=== PATIENT | female | born 1960 | race Caucasian/White ===

== ENCOUNTER 2018-10-24 08:23 | Outpatient (CLI) | payer BC | END 2018-10-24 08:24 | disposition home or self-care (01) | LOC: BICMAMMO 08:23 | PROVIDERS: ATTEND Obstetrics & Gynecology Gynecology | DX: Z12.31 Encounter for screening mammogram for malignant neoplasm of breast (principal); N63.10 Unspecified lump in the right breast, unspecified quadrant; N63.20 Unspecified lump in the left breast, unspecified quadrant; Z98.82 Breast implant status; Z85.038 Personal history of other malignant neoplasm of large intestine; Z80.3 Family history of malignant neoplasm of breast | CPT/HCPCS: 77063; 77067 ==

== ENCOUNTER 2019-06-08 08:24 | Outpatient (CLI) | payer OTHER ==
[2019-06-08] MEDS ORDERED: Gadobenate Dimeglumine 529 MG/1 ML (20ML VIAL) ONE (09:00)
--- NOTE | 2019-06-08 10:10 | MRI ---
MRI BRAIN WITH AND WITHOUT CONTRAST: DATE: 06/08/2019 HISTORY: 58-year-old female with vertigo TECHNIQUE: Multiplanar, multisequence MRI of the brain obtained pre and post IV injection of gadolinium based co ntrast agent. FINDINGS: The ventricles are normal in size and configuration. There is no midline shift or any other evidence of mass effect. There is no extra-axial fluid collection. There are a few tiny T2 hyperintense foci of the millimeters in size in the right frontal deep cerebral white matter. In the left parietal alex icomedullary junction or subcortical white matter, there is a very small 0.6 x 0.6 cm lesion which is centrally heterogeneously T2 hyperintense, with hemosiderin rim, and magnetic susceptibility artif act, and no surrounding vasogenic edema. There is little or no associated enhancement. There is no other major intra-axial signal abnormality, abnormal enhancement, mass, recent hemorrhage, or restric angélica diffusion. IMPRESSION: 1. Evidence for very small cavernous angioma in the left parietal lobe. 2. A few tiny right frontal cerebral white matter lesions, nonspecific. Most likely represent minimal chronic ischemic white matter changes due to microvascular atherosclerosis or migraine lesions. 3. Otherwise negative.
== END 2019-06-08 08:25 | disposition home or self-care (01) ==
LOC: SCSMRI 08:24
PROVIDERS: ATTEND Family Medicine
DX: R42 Dizziness and giddiness (principal); D18.02 Hemangioma of intracranial structures; G93.9 Disorder of brain, unspecified
CPT/HCPCS: 70553; 82565; A9577

== ENCOUNTER 2019-10-12 07:58 | Outpatient (CLI) | payer OTHER ==
--- NOTE | 2019-10-12 09:41 | ULT ---
EXAM: US Abdominal CLINICAL HISTORY: Positive bowel pain. Bloating. COMPARISON: None. FINDINGS: Pancreas: The head of the pancreas is a normal echotexture. The remainder the pancreas is obscured b y bowel gas IVC: Obscured and cannot be assessed Aorta: Visualized aorta has a normal caliber. Liver:Normal hepatic parenchymal echotexture. No hepatic masses or intrahepatic biliary dilatation. C ontour of the hepatic margins maintained. Right hepatic lobe measures 15.9 cm. Gallbladder: No sonographic evidence of cholelithiasis, gallbladder wall thickening or pericholecysti c fluid. Bravo's sign:Negative CBD: 0.69 cm common bile duct diameter Portal vein: Patent. Appropriate directional flow. Right kidney: Normal cortical echotexture. No hydronephrosis. Right kidney measuring 10.4 x 3.5 x 3. 8 cm in length. Left kidney: Left renal cortical thinning. No hydronephrosis.. Left kidney measuring 10.3 x 4.7 x 4.3 cm in length Spleen: Normal echotexture. Spleen measures 8.5 cm IMPRESSION: 1. Upper normal common bile duct diameter. MRCP or ERCP if clinically warranted. 2. Otherwise, unremarkable abdominal ultrasound.
== END 2019-10-12 07:59 | disposition home or self-care (01) ==
LOC: SCSULT 07:58
PROVIDERS: ATTEND Internal Medicine Gastroenterology
DX: C18.9 Malignant neoplasm of colon, unspecified (principal); R14.0 Abdominal distension (gaseous); R10.11 Right upper quadrant pain; R10.31 Right lower quadrant pain; K59.00 Constipation, unspecified; K57.90 Diverticulosis of intestine, part unspecified, without perforation or abscess without bleeding; R10.13 Epigastric pain; Z80.0 Family history of malignant neoplasm of digestive organs; Z85.038 Personal history of other malignant neoplasm of large intestine; R63.5 Abnormal weight gain
CPT/HCPCS: 93975

== ENCOUNTER 2020-07-30 10:10 | Outpatient (CLI) | payer BC ==
--- NOTE | 2020-07-30 10:59 | MMO ---
Bilateral MAMMO Bilat Screen [facility]. CLINICAL HISTORY: Patient is 60 years old and is seen for screening. The patient has a history of bilateral OTHER in Jan, 2019 - SALINE REMOVED FROM IMPLANTS and right Cyst Aspiration in November, - benign. VIEWS: The views performed were: bilateral craniocaudal with tomosynthesis and bilateral mediolateral oblique with tomosynthesis. FILMS COMPARED: The present examination has been compared to prior imaging studies performed at [facility] on 09/04/2012, 05/17/2017, 05/23/2017 and 10/24/2018. This study has been interpreted with the assistance of computer-aided detection. MAMMOGRAM FINDINGS: The breasts are heterogeneously dense, which could obscure a lesion on mammography. Benign calcifications are noted bilaterally. Bilateral implants are now collapsed. There are no suspicious masses, suspicious calcifications, or new areas of architectural distortion. IMPRESSION: THERE IS NO MAMMOGRAPHIC EVIDENCE OF MALIGNANCY. A ROUTINE FOLLOW-UP MAMMOGRAM IN 1 YEAR IS RECOMMENDED. THE RESULTS OF THIS EXAM WERE SENT TO THE PATIENT. ACR BI-RADS Category 2 - Benign finding MAMMOGRAPHY NOTE: 1. A negative mammogram report should not delay a biopsy if a dominant of clinically suspicious mass is present. 2. Approximately 10% to 15% of breast cancers are not detected by mammography. 3. Adenosis and dense breasts may obscure an underlying neoplasm. Reported by: HOLLAND CASTILLO MD Electonically Signed: [id number]
== END 2020-07-30 10:11 | disposition home or self-care (01) ==
LOC: BICMAMMO 10:10
PROVIDERS: ATTEND Obstetrics & Gynecology Gynecology
DX: Z12.31 Encounter for screening mammogram for malignant neoplasm of breast (principal); Z98.82 Breast implant status; Z91.89 Other specified personal risk factors, not elsewhere classified
CPT/HCPCS: 77063; 77067

== ENCOUNTER 2022-08-13 10:51 | Outpatient (CLI) | payer BC | END 2022-08-13 10:52 | disposition home or self-care (01) | LOC: BICMAMMO 10:51 | PROVIDERS: ATTEND Family Medicine | DX: Z12.31 Encounter for screening mammogram for malignant neoplasm of breast (principal); Z13.820 Encounter for screening for osteoporosis; M81.0 Age-related osteoporosis without current pathological fracture; M85.851 Other specified disorders of bone density and structure, right thigh; M85.852 Other specified disorders of bone density and structure, left thigh; Z98.82 Breast implant status | CPT/HCPCS: 77063; 77067; 77080 ==

== ENCOUNTER 2023-06-13 13:48 | Outpatient (CLI) | payer BC | END 2023-06-13 13:49 | disposition home or self-care (01) | LOC: BICMAMMO 13:48 | PROVIDERS: ATTEND Family Medicine | DX: N63.22 Unspecified lump in the left breast, upper inner quadrant (principal); N63.11 Unspecified lump in the right breast, upper outer quadrant | CPT/HCPCS: 77066; G0279 ==

== ENCOUNTER 2023-11-10 09:59 | Outpatient (CLI) | payer MEDICARE | END 2023-11-10 10:00 | disposition home or self-care (01) | LOC: BICMAMMO 09:59 | PROVIDERS: ATTEND Student in an Organized Health Care Education/Training Program | DX: N63.10 Unspecified lump in the right breast, unspecified quadrant (principal); N63.20 Unspecified lump in the left breast, unspecified quadrant; N64.89 Other specified disorders of breast | CPT/HCPCS: 77065; G0279 ==